=== PATIENT | male | born 1965 | race Caucasian/White ===

== ENCOUNTER 2018-05-10 08:11 | Outpatient (REF) | payer BC, SELFPAY ==
[2018-05-10 13:32] LABS: Anion Gap 7.8 mmol/L (3-11); BUN 23 mg/dL (7-18); CO2 26.2 mmol/L (21.0-32.0); CREATININE 1.14 mg/dL (0.70-1.30); Calcium 8.6 mg/dL (8.5-10.1); Chloride 107 mmol/L (98-107); Cholesterol 240 mg/dL (50-200); Glucose 97 mg/dL (70-100); HDL Cholesterol 41 mg/dL (40-60); LDL CHOLESTEROL 183 mg/dL (<100); Potassium 4.6 mmol/L (3.5-5.1); Sodium 141 mmol/L (136-145); Triglyceride 158 mg/dL (30-150)
== END 2018-05-10 08:31 ==
LOC: NCHCN 08:11
PROVIDERS: PCP Family Medicine; Visit Provider Nurse Practitioner Family
DX: Z00.00 Encounter for general adult medical examination without abnormal findings (principal); Z13.228 Encounter for screening for other metabolic disorders; Z13.220 Encounter for screening for lipoid disorders
CPT/HCPCS: 80048; 80061; 83721

== ENCOUNTER 2019-05-04 12:38 | Outpatient (REF) | payer BC, SELFPAY ==
[2019-05-04 13:10] LABS: HCT 39.4 % (40.0-50.0); HGB 13.4 g/dL (13.5-17.5); Mean Corpuscular Hemoglobin 29.3 pg (27.0-33.0); Mean Platelet Volume 10.5 fL (8.0-11.0); Platelet Count 252 x1000/uL (130-400); RBC 4.58 m/cumm (4.50-6.00); RBC Distribution Width 12.8 % (11.8-14.1); White Blood Cell Count 7.75 k/cumm (4.4-10.8)
[2019-05-04 13:36] LABS: Anion Gap 9.9 mmol/L (3-11); BUN 15 mg/dL (7-18); CO2 27.1 mmol/L (21.0-32.0); CREATININE 1.18 mg/dL (0.70-1.30); Calcium 8.9 mg/dL (8.5-10.1); Calculated LDL 152 mg/dL; Chloride 106 mmol/L (98-107); Cholesterol 213 mg/dL (50-200); Glucose 97 mg/dL (70-100); HDL Cholesterol 39 mg/dL (40-60); Potassium 4.3 mmol/L (3.5-5.1); Sodium 143 mmol/L (136-145); Triglyceride 114 mg/dL (30-150)
== END 2019-05-04 12:58 ==
LOC: NCHCN 12:38
PROVIDERS: PCP Family Medicine; Visit Provider Nurse Practitioner Family
DX: Z00.00 Encounter for general adult medical examination without abnormal findings (principal); Z13.228 Encounter for screening for other metabolic disorders; Z13.0 Encounter for screening for diseases of the blood and blood-forming organs and certain disorders involving the immune mechanism; Z13.220 Encounter for screening for lipoid disorders
CPT/HCPCS: 80048; 80061; 85027

== ENCOUNTER 2019-12-15 12:49 | Outpatient (CLI) | payer OTHER, SELFPAY ==
[2019-12-15 13:31] LABS: Abs Immature Grans 0.02 k/cumm (0.0-0.09); Absolute Basophil Count 0.02 k/cumm (0.0-0.2); Absolute Eosinophil Count 0.09 k/cumm (0.0-0.7); Absolute Lymphocyte Count 1.59 k/cumm (1.2-3.4); Absolute Monocyte Count 1.09 k/cumm (0.11-0.7); Absolute Neutrophil Count 6.67 k/cumm (1.2-6.7); Basophils % 0.2; Eosinophils % 0.9; HCT 39.4 % (40.0-50.0); HGB 13.4 g/dL (13.5-17.5); Immature Grans % 0.2 %; Lymphocytes % 16.8; Mean Corpuscular Hemoglobin 29.1 pg (27.0-33.0); Mean Corpuscular Volume 85.5 fL (80-95); Mean Platelet Volume 9.9 fL (8.0-11.0); Monocytes % 11.5; Neutrophils % 70.4; Platelet Count 276 x1000/uL (130-400); RBC 4.61 m/cumm (4.50-6.00); RBC Distribution Width 13.1 % (11.8-14.1); White Blood Cell Count 9.48 k/cumm (4.4-10.8)
[2019-12-15 13:57] LABS: ALT 33 U/L (16-63); AST 22 U/L (15-37); Albumin 4.1 g/dL (3.4-5.0); Alkaline Phosphatase 70 U/L (46-116); Anion Gap 7.2 mmol/L (3-11); BUN 13 mg/dL (7-18); Bilirubin, Total 0.8 mg/dL (0.2-1.0); CO2 27.8 mmol/L (21.0-32.0); CREATININE 1.21 mg/dL (0.70-1.30); Calcium 9.2 mg/dL (8.5-10.1); Chloride 104 mmol/L (98-107); Glucose 91 mg/dL (74-106); Sodium 139 mmol/L (136-145); Total Protein 7.8 g/dL (6.4-8.2)
[2019-12-15 14:15] LABS: ESR 24 mm/hr (1-20)
--- NOTE | 2019-12-15 15:21 | DI.CT_ITS ---
EXAM: CT ABDOMEN PELVIS W CLINICAL HISTORY: LOWER ABD PAIN,R10.30, DIVERTICULOSIS OF SIGMOID,K57.30, H/O DIVERTICULITIS. TECHNIQUE: Imaging Protocol: Axial computed tomography images with coronal and sagittal reformatted images were created and reviewed CONTRAST MATERIAL: Intravenous: Omnipaque 350 Contrast volume:100 ml Oral: yes COMPARISON: CT ABD PELVIS WITH CONTRAST from 03/18/2016 FINDINGS: ABDOMEN: Lung Bases: Normal where visualized. Liver: Normal density. No measurable mass. Gallbladder and biliary tract: No radiodense calculus or dilation. Pancreas: Normal density, no abnormal calcifications or inflammatory process. Spleen: Normal. Kidneys: There is stable mild right renal atrophy and dilatation of the right renal pelvis. There ar e few tiny nonobstructing stones. The nephrograms are symmetric. Adrenal glands: No masses seen. Abdominal Aorta: Abdominal portion non-dilated. PELVIS: Bladder: Symmetric distention, no gross wall thickening. Bowel: Numerous diverticula are seen, greatest in the sigmoid region. There is wall thickening and a djacent inflammation, consistent with diverticulitis. No abscess, free air or free fluid is seen. T here is no bowel dilatation. The appendix appears normal. Bones: Degenerative changes, greatest at L4-5. Reproductive organs: Within normal limits. Lymph nodes: Unremarkable. Impression: Findings consistent with acute sigmoid diverticulitis. No evidence abscess or perforation. Stable d ilatation of the right renal pelvis. RADIATION DOSE DELIVERED: 946.36mGy.cm Total DLP DATA REPOSITORY: All CT scans at this facility are submitted to the National Radiology Data Registry (NRDR) Dose Index Registry (DIR) with the [employer] (ACR). RADIATION OPTIMIZATION: All CT scans at this facility use at least one of these dose optimization te chniques: automated exposure control; mA and/or kV adjustment per patient size (includes targeted exa ms where dose is matched to clinical indication); or iterative reconstruction.
[2019-12-15] MEDS: Breeza Beverage 473 ML BTL PO ×2 (15:37→15:38)
[2019-12-15] MEDS: Omnipaque 350 MG/ML 50 ML BTL PO (15:38)
[2019-12-15] MEDS: Omnipaque 350 MG/ML 100 ML BTL IJ (16:57)
[2019-12-15] MEDS: Normal Saline - Diluent 50 ML VIAL IV (16:58)
--- NOTE | 2019-12-15 17:11 | DI.VRAD_ITS ---
PROCEDURE INFORMATION: Exam: CT Abdomen And Pelvis With Contrast Exam date and time: 12/15/2019 4:48 PM Age: 54 years old Clinical indication: Abdominal pain; Localized; Patient HX: Lower abd pain, diverticulosis of sigmoid; Additional info: H/o diverticulitis TECHNIQUE: Imaging protocol: Computed tomography of the abdomen and pelvis with intravenous contrast. COMPARISON: CT ABD PELVIS WITH CONTRAST 03/18/2016 4:50 PM FINDINGS: Liver: Normal. No mass. Gallbladder and bile ducts: Normal. No calcified stones. No ductal dilation. Pancreas: Normal. No ductal dilation. Spleen: Normal. No splenomegaly. Adrenals: Normal. No mass. Kidneys and ureters: Mild right hydroureteronephrosis without evidence of obstructive stone. Atrophy of the right kidney. Stomach and bowel: Acute diverticulitis in the sigmoid colon. Questionable pericolonic phlegmon measuring 2.3 x 4.2 cm. Appendix: Unable to identify the appendix. Intraperitoneal space: Unremarkable. No free air. No significant fluid collection. Vasculature: Unremarkable. No abdominal aortic aneurysm. Lymph nodes: Unremarkable. No enlarged lymph nodes. Bladder: Unremarkable as visualized. Reproductive: Vasectomy. Bones/joints: Degenerative disc disease at L4-L5. No acute fracture. Soft tissues: Small left inguinal hernia containing fat, uncomplicated. IMPRESSION: Acute diverticulitis in the sigmoid colon. Questionable pericolonic phlegmon measuring 2.3 x 4.2 cm. Mild right hydroureteronephrosis. No obstructive stone. Dictated and Authenticated by: Deep Velazquez MD. Ordering:RAMIRO Tavera MD
== END 2019-12-15 13:09 ==
PROVIDERS: PCP Nurse Practitioner Family; Visit Provider Nurse Practitioner Family
DX: R10.30 Lower abdominal pain, unspecified (principal); K57.32 Diverticulitis of large intestine without perforation or abscess without bleeding; N20.0 Calculus of kidney
CPT/HCPCS: 36415; 80053; 85652; 74177; 85025; J3490; Q9967

== ENCOUNTER 2019-12-15 17:57 | Emergency (ER) | payer OTHER, SELFPAY ==
[2019-12-15 18:09] VITALS: BP 145/90; PULSE 91; RESP 16; TEMP 36.6; O2SAT 98
--- NOTE | 2019-12-15 18:20 | ED.GENADUL_ITS ---
Discharge Plan Disposition Patient Disposition: HOME Condition: Stable Discharge Details Chief Complaint: Abd Prob Clinical Impression: Diverticulitis Primary Care Provider: Shey Perez ED Provider: Flower Kinsey Home Meds and New Rx's Prescriptions: New ciprofloxacin HCl 500 mg tablet 500 mg PO BID 10 Days Qty: 20 RF: 0 metronidazole 500 mg tablet 500 mg PO BID 10 Days Qty: 20 RF: 0 Discharge Instructions Instructions: Diverticulitis (ED), Diverticulitis Diet (ED) Additional Instructions: Follow up with primary care provider in 3-5 days. Return to ED sooner if any worsening or concerns. Increase oral fluids. Please take Tylenol or Ibuprofen with food every 4-6 hours as needed for pain and swelling. Take medications as directed. Return for any rectal bleeding, fever, vomiting or worsening pain. Referrals: Shey Perez MD [Primary Care Provider] - Discharge Data Discharge Date/Time-TO BE ENTERED AT DEPARTURE: 12/15/19 20:30 Medical Decision Making <Flower Kinsey - Last Filed: 12/15/19 22:27> 54-year-old male presents with a chief complaint of abdominal pain. Patient states that he was seen by his primary care provider Dr. Liang Portillo had lab work done and had a CT abdomen pelvis with IV contrast which shows acute diverticulitis with a pericolonic phlegmon measuring 2.3 x 4.2 cm which raises the concern for possible abscess. Patient states that his abdominal pain began 3 days ago and got worse today after walking. He states that his bowel movements have been decreased and watery. Denies vomiting, denies fever or chills, denies hematochezia. He does have a history of diverticulitis has had 1 episode in the past. He had a CBC and CMP done today, added on magnesium, lactate blood cultures x2 and a urinalysis. 183: Spoke with Dr. Galloway who is the surgeon biofuels operations manager regarding patient case in [facility], she is going to review his CT result and images and labs and call me back regarding possible admission for this patient. 1842: Spoke with Dr. Lamar of surgery who reports that if patient's pain is poorly controlled and/or has abnormal labs she does not mind admitting patient. Otherwise if patient would rather be discharged home she can follow-up with him in the clinic on and she is also biofuels operations manager this weekend if he gets any worse to return to the ED. I will wait for the rest of his labs to come back and see if his pain is controlled before making the final disposition decision. 1915: Patient refused morphine and Zofran at this time states pain is 3 or 4 out of 10 and is tolerable. Discussed inpatient admission versus outpatient treatment shared decision making performed with patient he states that he thinks that he would do well at home. At this time I agree given his labs are all within normal limits and his pain seems somewhat under control and tolerable. He is receiving IV ciprofloxacin 40 mg now IV piggyback. We will cancel the IV Flagyl and give him oral Flagyl. Discussed strict return instructions and red flags with patient, verbalized understanding. <Rodolfo López MD - Last Filed: 12/22/19 14:58> Patient seen, examined, and discussed with EVITA Kinsey. Abdominal exam: Patient does have some focal tenderness left lower quadrant, no rebound tenderness, abdomen is soft. I agree with treatment plan as discussed/documented. HPI <Flower Kinsey - Last Filed: 12/15/19 22:27> General Mode of arrival: ambulatory . Date/Time Provider Initiated Documentation: 12/15/19 17:59 . Limitations to Documentation: no limitations . Information obtained by: patient . HPI Narrative: 54-year-old male presents with a chief complaint of abdominal pain. Patient states that he was seen by his primary care provider Dr. Liang Portillo had lab work done and had a CT abdomen pelvis with IV contrast which shows acute diverticulitis with a pericolonic phlegmon measuring 2.3 x 4.2 cm which raises the concern for possible abscess. Patient states that his abdominal pain began 3 days ago and got worse today after walking. He states that his bowel movements have been decreased and watery. Denies vomiting, denies fever or chills, denies hematochezia. He does have a history of diverticulitis has had 1 episode in the past. Related Data Home Medications Medication Instructions Recorded Confirmed ciprofloxacin HCl 500 mg PO BID 10 Days #20 tab 12/15/19 metronidazole 500 mg PO BID 10 Days #20 tab 12/15/19 Previous Rx's Medication Instructions Recorded ciprofloxacin HCl 500 mg PO BID 10 Days #20 tab 12/15/19 metronidazole 500 mg PO BID 10 Days #20 tab 12/15/19 Allergies Allergy/AdvReac Type Severity Reaction Status Date / Time doxazosin mesylate AdvReac Unknown Unverified 12/15/19 19:06 [From Kevin] General Stated Complaint: Abd Prob ARTURO: 3 Review of Systems <Flower Kinsey - Last Filed: 12/15/19 22:27> Narrative: Constitutional: Negative for weight loss, alert and oriented, well groomed, normal body habitus, appears comfortable. HEENT: Denies trauma, headaches, blurry vision, nasal discharge, sore throat, trouble swallowing. Chest: Denies chest pain, palpitations, irregular rhythm, hypertension. Respiratory: Denies Shortness of breath, cough, hemoptysis. GI: Denies nausea, vomiting, constipation. Positive lower bilateral abdominal pain, positive diarrhea. : Denies dysuria, hematuria, flank pain, rectal bleeding. Neuro: Denies dizziness, blurry vision, weakness, syncope, headache or facial numbness. Hematologic: Denies easy bruising, intolerance to heat or cold, hair loss. All systems reviewed & are unremarkable except as noted in HPI and below PFSH <Flwoer Kinsey - Last Filed: 12/15/19 22:27> Medical History Diverticulitis Surgical History Vasectomy Social History Smoking/Tobacco Use Status: Never Alcohol Intake: current Alcohol Intake frequency: a few times a month Alcohol type: beer Drug use: Never Substance use type: does not use Do you feel safe at home: Yes Do you feel safe in your relationship?: Yes Exam <Flower Kinsey - Last Filed: 12/15/19 22:27> Narrative Exam Narrative: Constitutional: Alert and oriented x3. Appears stated age. Normal body habitus. Head: Normocephalic, no trauma. Eyes: Pupils PERRLA, Red reflex noted, EOM's intact. Eyelids symmetrical without lesions, discharge, or swelling. ENT: Bilateral TM's WNL, External ear normal to inspection, no mastoid TTP, swelling, or erythema, Nasal turbinates WNL, no nasal discharge. Normal dentition, Posterior pharynx WNL, no exudate. Chest: RRR, Normal S1, S2, distal pulses intact. Resp: Lungs clear to auscultation bilaterally, no wheezes, rales, or rhonchi. Musculoskeletal: Normal gait, 5/5 strength to all four extremities. Abdominal: Soft, nondistended, hyperactive bowel sounds noted. Tender to palpation left lower quadrant and right lower quadrant. Skin: No suspicious rashes or lesions. Capillary refill less than 2 sec. Neurologic: Cranial nerves II-XII intact. Alert and oriented x 3. DTR's intact. Hematologic/Lymphatic: No ecchymosis, no lymphadenopathy. Course <Flower Kinsey - Last Filed: 12/15/19 22:27> Vital Signs Vital signs: Vital Signs Temperature 36.6 C 12/15/19 18:09 Pulse 91 H 12/15/19 18:09 Respiratory Rate 16 12/15/19 18:09 Blood Pressure 145/90 H 12/15/19 18:09 Pulse Oximetry 98 12/15/19 18:09 Temperature 36.6 C 12/15/19 18:09 Temperature Source Temporal Artery Scan 12/15/19 18:09 Pulse 91 H 12/15/19 18:09 Respiratory Rate 16 12/15/19 18:09 Blood Pressure 145/90 H 12/15/19 18:09 Blood Pressure Position Sitting 12/15/19 18:09 Pulse Oximetry 98 12/15/19 18:09 Oxygen Delivery Method Room Air 12/15/19 18:09 Oxygen Flow Rate 0 12/15/19 18:09 Pain Level 3 12/15/19 18:09 Comment 12/15/19 18:09 Lab/Test Results Lab/Test Results: 12/15/19 18:19 Blood Blood Culture - Pending 12/15/19 18:19 Blood Blood Culture - Pending
[2019-12-15] MEDS: Normal Saline Flush 10 ML SYR IVP (18:35)
[2019-12-15 18:41] LABS: Lactate 0.8 mmol/L (0.6-1.4)
[2019-12-15 18:50] LABS: Magnesium 1.8 mg/dL (1.8-2.4)
[2019-12-15 18:55] LABS: Bilirubin Negative (Negative); Blood Negative (Negative); Clarity Clear (Clear); Glucose Negative (Negative); Ketones Negative (Negative); Leukocyte Esterase Negative (Negative); Nitrite Negative (Negative); Specific Gravity <= 1.005 (1.005-1.025); Urobilinogen 0.2 EU/dL (Up TO 0.2); pH 5.5 (5-8)
[2019-12-15] MEDS: Normal Saline 1,000 ML 1000 ML IV (18:55)
[2019-12-15] MEDS: CIPROFLOXACIN 400 MG/200 ML BAG 200 MG IVPB (18:57)
[2019-12-15] MEDS: metroNIDAZOLE 500 MG TAB PO ×2 (19:29→19:30)
[2019-12-15 20:33] VITALS: BP 126/82; PULSE 80; RESP 16; TEMP 37; O2SAT 98
== END 2019-12-15 20:30 | disposition home or self-care (01) ==
PROVIDERS: Emergency Provider Registered Nurse Emergency; PCP Family Medicine
DX: K57.32 Diverticulitis of large intestine without perforation or abscess without bleeding (principal)
CPT/HCPCS: 36415; 87040; 96361; 96365; 99284; 81003; 83605; 83735; J0744; J2270

== ENCOUNTER 2020-02-23 09:43 | Emergency (ER) | payer OTHER, SELFPAY ==
[2020-02-23 09:48] VITALS: BP 136/105; PULSE 97; RESP 18; TEMP 36.6; O2SAT 96
--- NOTE | 2020-02-23 09:54 | ED.GENADUL_ITS ---
Discharge Plan Disposition Patient Disposition: HOME Condition: Stable Discharge Details Chief Complaint: Abd Prob Clinical Impression: Acute diverticulitis Primary Care Provider: Liang Portillo ED Provider: Marjorie Paulino Home Meds and New Rx's Prescriptions: New amoxicillin-pot clavulanate [Augmentin] 875-125 mg tablet 1 tab PO BID 10 Days Qty: 20 RF: 0 Continued pantoprazole 20 mg tablet,delayed release (DR/EC) 20 mg PO DAILY PRNRF: 0 Discharge Instructions Instructions: Diverticulitis (ED), Diverticulitis Diet (ED) Additional Instructions: Drink plenty of fluids and get plenty of rest. Take antibiotics until finished. Follow-up with your primary care doctor in 1 week. Return to the emergency department with any worsening or new concerning symptoms. Referrals: Cherise Galloway MD [ [facility] STAFF PHYSICIAN] - Discharge Data Discharge Physician: Marjorie Paulino Medical Decision Making 54-year-old male with lower abdominal pain worse in left lower quadrant similar to previous episodes of diverticulitis. He appears nontoxic. He has tenderness across lower abdomen, worse in left lower quadrant. Will refer for labs and CT imaging. Declines any medication for pain. 1125 --labs and imaging reviewed. White blood cell count 12. Urinalysis negative. CT notes acute diverticulitis at descending and sigmoid colon. Case discussed with surgery Dr. Galloway and she agrees that patient can be treated as outpatient and recommends follow-up with her for reevaluation and to discuss colonoscopy which patient is due for soon. Patient reassessed -denies any significant pain and feels good to go home. 1 dose of Augmentin given here as well as prescription. Patient placed on surgery follow-up list. Usual and customary return precautions given prior to discharge. Medical Records Medical records reviewed: Yes I reviewed the patient's medical records. Imaging Data Radiologic Study: Radiologist's impression: CT ABDOMEN PELVIS W CLINICAL HISTORY: lower abd pain, h/o diverticulitis. TECHNIQUE: Imaging Protocol: Axial computed tomography images with coronal and sagittal reformatted images were created and reviewed CONTRAST MATERIAL: Intravenous: Omnipaque 350 Contrast volume:100 ml Oral: no COMPARISON: CT CT ABDOMEN PELVIS W from 12/15/2019 FINDINGS: ABDOMEN: Lung Bases: Normal where visualized. Liver: Normal density. No measurable mass. Gallbladder and biliary tract: No radiodense calculus or dilation. Pancreas: Normal density, no abnormal calcifications or inflammatory process. Spleen: Normal. Kidneys: There is stable mild right renal atrophy and dilatation of the right renal pelvis.. No obstructive uropathy. Few tiny nonobstructing stones are again noted. No masses seen. Adrenal glands: No masses seen. Abdominal Aorta: Abdominal portion non-dilated. PELVIS: Bladder: Symmetric distention, no gross wall thickening. Bowel: Diverticulosis is again noted of the lower descending and sigmoid colon. There is inflammation and wall thickening at the junction of the descending and sigmoid, consistent with diverticulitis. There is no evidence of abscess or perforation. The there is no free fluid. Peritoneal cavity: No ascites, collection or mesenteric inflammatory response. Bones: Within normal limits. Reproductive organs: Within normal limits. Lymph nodes: Unremarkable. Impression: Acute diverticulitis at the junction of the descending and sigmoid colon. No abscess or perforation. Lab Data Lab results reviewed: Yes I reviewed the patient's lab results. Labs: Laboratory Tests Range/Units 02/23/20 02/23/20 02/23/20 10:00 10:15 10:15 WBC (4.4-10.8) 10^3/uL 12.85 H RBC (4.36-5.78) 10^6/uL 4.75 Hgb (13.5-17.5) g/dL 13.6 Hct (40.0-50.0) % 40.7 MCV (80-95) fL 85.7 MCH (27.0-33.0) pg 28.6 MCHC (32.0-36.0) % 33.4 RDW (11.8-14.1) % 12.6 Plt Count (130-400) 10^3/uL 242 MPV (8.0-11.0) fL 10.0 Immature Gran % 0.3 Neutrophils % 75.7 Lymphocytes % 15.1 Monocytes % 8.3 Eosinophils % 0.3 Basophils % 0.3 Absolute Neutrophils (1.2-6.7) 10^3/uL 9.73 H Absolute Lymphocytes (1.2-3.4) 10^3/uL 1.94 Absolute Monocytes (0.1-0.8) 10^3/uL 1.07 H Absolute Eosinophils (0.0-0.7) 10^3/uL 0.04 Absolute Basophils (0.0-0.2) 10^3/uL 0.04 Sodium (136-145) mmol/L 139 Potassium (3.5-5.1) mmol/L 4.1 Chloride (98-107) mmol/L 104 Carbon Dioxide (21.0-32.0) mmol/L 22.9 Anion Gap (3-11) mmol/L 12.1 H BUN (7-18) mg/dL 11 Creatinine (0.70-1.30) mg/dL 0.98 Estimated GFR/1.73 m2 (mL/min/1.73m2) >= 60.00 Glucose (74-106) mg/dL 105 Calcium (8.5-10.1) mg/dL 9.0 Total Bilirubin (0.2-1.0) mg/dL 1.1 H AST (15-37) U/L 24 ALT (16-63) U/L 29 Alkaline Phosphatase (46-116) U/L 72 Total Protein (6.4-8.2) g/dL 8.0 Albumin (3.4-5.0) g/dL 4.1 Lipase (73-393) U/L 79 Urine Color (Yellow) Yellow Urine Clarity (Clear) Clear Urine pH (5-8) 5.5 Ur Specific Cove (1.005-1.025) 1.010 Urine Protein (Negative) mg/dL Negative Urine Ketones (Negative) mg/dL Negative Urine Blood (Negative) Negative Urine Nitrite (Negative) Negative Urine Bilirubin (Negative) Negative Urine Urobilinogen (Up TO 0.2) EU/dL 0.2 Ur Leukocyte Esterase (Negative) Negative Urine Glucose (Negative) mg/dL Negative HPI General Mode of arrival: ambulatory . Date/Time Provider Initiated Documentation: 02/23/20 09:48 . Limitations to Documentation: no limitations . Information obtained by: patient . HPI Narrative: Pt is a 54yo M w/ a h/o diverticulitis who presents to the ED w/ a c/o LLQ abdominal pain for the past 2 days. Pt states the pain began as intermittent and is now more constant. He de scribes it at as crampy, across the lower abdomen and worse in the LLQ. He states the pain is now 2/10 but is worse with movement and walking. He denies fever, nausea, vomiting, diarrhea, or urinary symptoms. He took ibuprofen for pain yesterday but nothing today. He states the pain feels similar to his previous episodes of diverticulitis which he last was treated for 2 months ago. Related Data Home Medications Medication Instructions Recorded Confirmed amoxicillin-pot clavulanate 1 tab PO BID 10 Days #20 tab 02/23/20 [Augmentin] pantoprazole 20 mg PO DAILY PRN 02/23/20 02/23/20 Previous Rx's Medication Instructions Recorded amoxicillin-pot clavulanate 1 tab PO BID 10 Days #20 tab 02/23/20 [Augmentin] Allergies Allergy/AdvReac Type Severity Reaction Status Date / Time doxazosin mesylate AdvReac Unknown Unverified 02/23/20 10:19 [From Kevin] General Stated Complaint: Abd Prob ARTURO: 3 Review of Systems All systems reviewed & are unremarkable except as noted in HPI and below Constitutional Constitutional: Reports as per HPI, Denies chills and Denies fever(s) Eyes Eyes: Denies blurry vision ENT Ears, Nose, Mouth, and Throat: Denies dizziness, Denies sore throat and Denies throat swelling Cardiovascular Cardiovascular: Denies chest pain and Denies dyspnea Respiratory Respiratory: Denies cough and Denies dyspnea Gastrointestinal Gastrointestinal: Reports abdominal pain, Denies diarrhea and Denies vomiting Genitourinary Genitourinary: Denies hematuria and Denies dysuria Musculoskeletal Musculoskeletal: Denies back pain and Denies numbness Integumentary/Breasts Skin/Breast: Denies lesions and Denies rash Neurologic Neurologic: Denies dizziness, Denies localized weakness and Denies numbness Allergic/Immunologic Allergic/Immunologic: Denies throat swelling PENDING SALE TO [facility] Medical History (Updated 02/23/20 @ 11:35 by Marjorie Paulino DO) Diverticulitis Surgical History Vasectomy Social History Smoking/Tobacco Use Status: Never Alcohol Intake: current Alcohol Intake frequency: a few times a month Alcohol type: beer Drug use: Never Substance use type: does not use Do you feel safe at home: Yes Do you feel safe in your relationship?: Yes Exam Const General: cooperative, healthy appearing and no acute distress HENAZ Head: normal to inspection Face and sinus: normal facial exam Eyes General: appearance normal, both eyes and all related structures EOM: EOM intact bilaterally Neck Neck: normal visual inspection and No submandibular swelling Lymphatic: no lymphadenopathy noted Chest Chest: normal inspection of the chest and no tenderness Resp Effort & Inspection: normal respiratory effort and able to speak in complete sentences Auscultation: clear to auscultation bilaterally Cardio Rate: regular rate Rhythm: regular rhythm GI Inspection: normal to inspection Palpation: soft, not firm, not rigid and tender (across lower abdomen, worse in LLQ) Auscultation: hypoactive bowel sounds Skin General skin exam: no rashes or lesions noted Neuro General: patient alert, patient awake and patient oriented x3 Cognition: normal cognition Speech: speech normal Motor: muscle tone normal throughout Sensory Exam: no sensory deficits noted Extrem General: normal to inspection, full ROM, capillary refill normal, no calf tenderness bilaterally and no edema Psych Appearance: grossly normal Mental Status: mental status grossly normal Speech and Movement: speech and movement normal Affect: normal affect Course Vital Signs Vital signs: Vital Signs Temperature 97.9 F 02/23/20 09:48 Pulse 97 H 02/23/20 09:48 Respiratory Rate 18 02/23/20 09:48 Blood Pressure 136/105 H 02/23/20 09:48 Pulse Oximetry 96 02/23/20 09:48 Temperature 97.9 F 02/23/20 09:48 Temperature Source Skin 02/23/20 09:48 Pulse 97 H 02/23/20 09:48 Respiratory Rate 18 02/23/20 09:48 Blood Pressure 136/105 H 02/23/20 09:48 Blood Pressure Position Sitting 02/23/20 09:48 Pulse Oximetry 96 02/23/20 09:48 Oxygen Delivery Method Room Air 02/23/20 09:48 Oxygen Flow Rate 0 02/23/20 09:48 Pain Level 2 02/23/20 09:48
[2020-02-23 10:11] LABS: Bilirubin Negative (Negative); Blood Negative (Negative); Clarity Clear (Clear); Glucose Negative (Negative); Ketones Negative (Negative); Leukocyte Esterase Negative (Negative); Nitrite Negative (Negative); Urobilinogen 0.2 EU/dL (Up TO 0.2); pH 5.5 (5-8)
[2020-02-23] MEDS: Normal Saline Flush 10 ML SYR IVP ×2 (10:15→11:23)
[2020-02-23 10:29] LABS: Abs Immature Grans 0.04 10^3/uL (0.0-0.06); Absolute Basophil Count 0.04 10^3/uL (0.0-0.2); Absolute Eosinophil Count 0.04 10^3/uL (0.0-0.7); Absolute Lymphocyte Count 1.94 10^3/uL (1.2-3.4); Absolute Monocyte Count 1.07 10^3/uL (0.1-0.8); Basophils % 0.3; Eosinophils % 0.3; HCT 40.7 % (40.0-50.0); HGB 13.6 g/dL (13.5-17.5); Immature Grans % 0.3; Lymphocytes % 15.1; MCH 28.6 pg (27.0-33.0); MCHC 33.4 % (32.0-36.0); MCV 85.7 fL (80-95); Monocytes % 8.3; Neutrophils % 75.7; Platelet Count 242 10^3/uL (130-400); RBC 4.75 10^6/uL (4.36-5.78); RDW 12.6 % (11.8-14.1); RDW-SD 39.7 fL; WBC 12.85 10^3/uL (4.4-10.8)
[2020-02-23 10:31] LABS: Absolute Neutrophil Count 9.73 10^3/uL (1.2-6.7)
[2020-02-23] MEDS: Normal Saline 1,000 ML 1000 ML IV (10:31)
[2020-02-23 10:43] LABS: ALT 29 U/L (16-63); AST 24 U/L (15-37); Albumin 4.1 g/dL (3.4-5.0); Alkaline Phosphatase 72 U/L (46-116); Anion Gap 12.1 mmol/L (3-11); BUN 11 mg/dL (7-18); Bilirubin, Total 1.1 mg/dL (0.2-1.0); CO2 22.9 mmol/L (21.0-32.0); CREATININE 0.98 mg/dL (0.70-1.30); Chloride 104 mmol/L (98-107); Glucose 105 mg/dL (74-106); Lipase 79 U/L (73-393); Potassium 4.1 mmol/L (3.5-5.1); Sodium 139 mmol/L (136-145)
--- NOTE | 2020-02-23 11:15 | DI.CT_ITS ---
EXAM: CT ABDOMEN PELVIS W CLINICAL HISTORY: lower abd pain, h/o diverticulitis. TECHNIQUE: Imaging Protocol: Axial computed tomography images with coronal and sagittal reformatted images were created and reviewed CONTRAST MATERIAL: Intravenous: Omnipaque 350 Contrast volume:100 ml Oral: no COMPARISON: CT CT ABDOMEN PELVIS W from 12/15/2019 FINDINGS: ABDOMEN: Lung Bases: Normal where visualized. Liver: Normal density. No measurable mass. Gallbladder and biliary tract: No radiodense calculus or dilation. Pancreas: Normal density, no abnormal calcifications or inflammatory process. Spleen: Normal. Kidneys: There is stable mild right renal atrophy and dilatation of the right renal pelvis.. No obst ructive uropathy. Few tiny nonobstructing stones are again noted. No masses seen. Adrenal glands: No masses seen. Abdominal Aorta: Abdominal portion non-dilated. PELVIS: Bladder: Symmetric distention, no gross wall thickening. Bowel: Diverticulosis is again noted of the lower descending and sigmoid colon. There is inflammatio n and wall thickening at the junction of the descending and sigmoid, consistent with diverticulitis. There is no evidence of abscess or perforation. The there is no free fluid. Peritoneal cavity: No ascites, collection or mesenteric inflammatory response. Bones: Within normal limits. Reproductive organs: Within normal limits. Lymph nodes: Unremarkable. Impression: Acute diverticulitis at the junction of the descending and sigmoid colon. No abscess or perforation. RADIATION DOSE DELIVERED: 1,064.3mGy.cm Total DLP DATA REPOSITORY: All CT scans at this facility are submitted to the National Radiology Data Registry (NRDR) Dose Index Registry (DIR) with the [employer] (A[employer]). RADIATION OPTIMIZATION: All CT scans at this facility use at least one of these dose optimization te chniques: automated exposure control; mA and/or kV adjustment per patient size (includes targeted exa ms where dose is matched to clinical indication); or iterative reconstruction.
[2020-02-23] MEDS: Omnipaque 350 MG/ML 100 ML BTL IJ (11:22)
[2020-02-23] MEDS: Normal Saline - Diluent 50 ML VIAL IV (11:22)
[2020-02-23] MEDS: Amoxicillin 875/Clav. 125 TAB PO (11:48)
[2020-02-23 11:51] VITALS: BP 143/89; PULSE 85; RESP 18; O2SAT 96
== END 2020-02-23 11:59 | disposition home or self-care (01) ==
PROVIDERS: Emergency Provider Physician Assistant; PCP Nurse Practitioner Family
DX: K57.32 Diverticulitis of large intestine without perforation or abscess without bleeding (principal)
CPT/HCPCS: 36415; 80053; 83690; 96360; 99285; 74177; 81003; 85025; J3490

== ENCOUNTER 2020-05-03 06:07 | Day surgery (SDC) | payer OTHER, SELFPAY ==
[2020-05-03 06:18] VITALS: BP 131/89; PULSE 71; RESP 18; TEMP 36.3; O2SAT 99
[2020-05-03] MEDS: Lactated Ringers 1,000 ML 80 ML IV (06:40)
--- NOTE | 2020-05-03 07:59 | W.PM.DSUDISC ---
Discharge Plan Disposition Patient Disposition: HOME Condition: Good Discharge Details Reason For Visit: Colonoscopy Attending Provider: Cherise Galloway Primary Care Provider: Liang Portillo Home Meds and New Rx's Prescriptions: Continued pantoprazole 20 mg tablet,delayed release (DR/EC) 20 mg PO DAILY PRNRF: 0 Discontinued polyethylene glycol 3350 17 gram/dose powder 238 g PO ONCE Qty: 238 RF: 0 bisacodyl 5 mg tablet,delayed release (DR/EC) 5 mg PO ONCE Qty: 4 RF: 0 Discharge Instructions Additional Instructions: Findings: Your colonoscopy showed uncomplicated diverticulosis. No inflammation or narrowing was seen. Follow up: Due to history of polyps, plan for colonoscopy in 7 years. Please call if you develop: fevers >101.5 Nausea or Vomiting Abdominal pain that is not transient DAY SURGERY UNIT POST COLONOSCOPY INSTRUCTIONS 1. Because there will be medication in your system for the next 24 hours, you may feel a little sleepy. Your coordination will be affected. Therefore: a. Do not drive or operate dangerous equipment for 24 hours. b. Do not drink alcohol beverages for 24 hours (not even beer). c. Plan to go home and rest for the day. 2. Generally there are no restrictions on your activity after a day or so has gone by, but you may feel a bit fatigued for a few days. 3 After you arrive home you may have a light meal and return to a normal diet as you can tolerate it without feeling sick to your stomach. 4. After surgery, you may feel pain or discomfort. This should be only transient, but if it persists please contact your doctor. 5. If there are any questions regarding the findings of your procedure, please feel free to contact your doctor. 6. If you are unable to contact your doctor with a problem, contact the hospital at [phone]. 7. Continue all your regular medications unless directed otherwise. I understand the above instructions and have no questions. Signature of Patient or Responsible Adult Escort Date/Time Name of Responsible Adult Escort Signature of Nurse Date/Time Activity:: Activity as Tolerated Diet:: As Tolerated Discharge Orders Discharge Orders: Discharge Order (Routine); Ordered 05/03/20 Ordered By: Cherise Galloway DS: Diagnosis Discharge Diagnosis (1) Diverticulosis: Status: Acute
--- NOTE | 2020-05-03 08:02 | W.COLOREPORT ---
Date of service: 05/03/20 Time of Service: 08:02 Colonoscopy Report Date of procedure: 05/03/20 Pre-op diagnosis general: History of tubular adenoma, diverticulitis Post-op diagnosis procedure note: other (Diverticulosis) Procedure: Colonoscopy Surgeon: Cherise Galloway Anesthesia proc note operative: MAC Indications: This 55 year old man has been treated for diverticulitis twice this year. He is due for a colonoscopy after having a tubular adenoma removed in 2013. Procedure Description: The patient was placed in the left Godwin position. Propofol was titrated to sedation. Digital rectal examination revealed no abnormalities. The scope was advanced to the cecum without difficulty. The ileocecal valve and appendiceal orifice were clearly identified. The prep was good. The scope was slowly withdrawn over the course of greater than 6 minutes with no abnormalities seen in the ascending, transverse, descending colon. He had a moderate amount of diverticulosis in the sigmoid colon but no acute inflammation, obvious muscular hypertrophy or stricture. The scope could be passed easily through this area. The rectum was normal including on retroflexed view. The patient tolerated the procedure well and was stable to recovery. Plan for routine screening colonoscopy in 7 years due to history of polyps or sooner if symptoms indicate.
[2020-05-03 08:24] VITALS: BP 110/84; PULSE 72; RESP 17; TEMP 36.1; O2SAT 97
== END 2020-05-03 09:00 | disposition home or self-care (01) ==
PROVIDERS: PCP Nurse Practitioner Family; Visit Provider Surgery
PROC: 0DJD8ZZ Inspection of Lower Intestinal Tract, Via Natural or Artificial Opening Endoscopic (ICD-10-PCS; CPT 45378; principal; 2020-05-03 07:30)
DX: Z12.11 Encounter for screening for malignant neoplasm of colon (principal); Z86.010 Personal history of colon polyps; K57.30 Diverticulosis of large intestine without perforation or abscess without bleeding
CPT/HCPCS: 45378

== ENCOUNTER 2020-05-23 09:22 | Outpatient (REF) | payer OTHER, SELFPAY ==
[2020-05-23 19:10] LABS: Calculated LDL 156 mg/dL (<100); Cholesterol 228 mg/dL (<200); HDL Cholesterol 40 mg/dL (40-60); Triglyceride 160 mg/dL (<150)
[2020-05-29 09:47] LABS: HIV-1/2 Ag & Ab Screen Negative (Negative); Hepatitis C Ab w Rflx HCV PCR Negative (Negative)
== END 2020-05-23 09:42 ==
LOC: NCHCN 09:22
PROVIDERS: PCP Nurse Practitioner Family; Visit Provider Nurse Practitioner Family
DX: Z00.00 Encounter for general adult medical examination without abnormal findings (principal); E78.5 Hyperlipidemia, unspecified
CPT/HCPCS: 80061; 86803; 87389

== ENCOUNTER 2021-07-09 14:55 | Outpatient (REF) | payer OTHER, SELFPAY ==
[2021-07-09 15:32] LABS: Calculated LDL 155 mg/dL (<100); Cholesterol 223 mg/dL (<200); HDL Cholesterol 44 mg/dL (40-60); Triglyceride 122 mg/dL (<150)
[2021-07-09 22:55] LABS: PSA, Screening 0.5 ng/mL (0.0-3.5)
== END 2021-07-09 14:56 | disposition home or self-care (01) ==
LOC: NCHCN 14:55
PROVIDERS: PCP Nurse Practitioner Family; Visit Provider Physician Assistant
DX: Z12.5 Encounter for screening for malignant neoplasm of prostate (principal); E78.5 Hyperlipidemia, unspecified; Z00.00 Encounter for general adult medical examination without abnormal findings
CPT/HCPCS: 80061; 84153

== ENCOUNTER 2022-10-19 15:12 | Outpatient (REF) | payer OTHER, SELFPAY ==
[2022-10-19 16:25] LABS: Abs Immature Grans 0.01 10^3/uL (0.0-0.06); Absolute Basophil Count 0.05 10^3/uL (0.0-0.2); Absolute Lymphocyte Count 1.76 10^3/uL (1.2-3.4); Absolute Monocyte Count 0.56 10^3/uL (0.1-0.8); Absolute Neutrophil Count 3.91 10^3/uL (1.2-6.7); Basophils % 0.8; Eosinophils % 1.6; HCT 44.6 % (40.0-50.0); Immature Grans % 0.2; Lymphocytes % 27.5; MCH 28.6 pg (27.0-33.0); MCHC 33.6 % (32.0-36.0); MCV 85 fL (80-95); MPV 11.1 fL (8.0-11.0); Monocytes % 8.8; Neutrophils % 61.1; Platelet Count 226 10^3/uL (130-400); RBC 5.24 10^6/uL (4.36-5.78); RDW 12.8 % (11.8-14.1); RDW-SD 39.2 fL; WBC 6.39 10^3/uL (4.4-10.8)
[2022-10-19 16:34] LABS: ESR 7 mm/hr (0-20)
[2022-10-19 16:46] LABS: Calculated LDL 195 mg/dL (<100); Cholesterol 263 mg/dL (<200); HDL Cholesterol 48 mg/dL (40-60); Triglyceride 103 mg/dL (<150)
[2022-10-19 16:50] LABS: Hemoglobin A1C 5.9 % (<5.7)
[2022-10-19 16:59] LABS: C-Reactive Protein 0.35 mg/dL (0.0-0.3)
== END 2022-10-19 15:13 | disposition home or self-care (01) ==
LOC: NCHCN 15:12
PROVIDERS: PCP Physician Assistant; Visit Provider Physician Assistant
DX: Z00.00 Encounter for general adult medical examination without abnormal findings (principal); E78.5 Hyperlipidemia, unspecified; Z13.1 Encounter for screening for diabetes mellitus
CPT/HCPCS: 80061; 85652; 83036; 85025; 86140

== ENCOUNTER 2024-06-26 15:19 | Outpatient (REF) | payer OTHER, SELFPAY ==
[2024-06-26 15:28] LABS: HCT 40.3 % (40.0-50.0); HGB 13.6 g/dL (13.5-17.5); MCH 28.9 pg (27.0-33.0); MCHC 33.7 % (32.0-36.0); MCV 86 fL (80-95); Platelet Count 196 10^3/uL (130-400); RDW 12.7 % (11.8-14.1); RDW-SD 39.8 fL; WBC 5.47 10^3/uL (4.4-10.8)
[2024-06-26 16:50] LABS: ALT 31 U/L (16-63); AST 27 U/L (15-37); Albumin 4.3 g/dL (3.4-5.0); Alkaline Phosphatase 69 U/L (46-116); Anion Gap 10.2 mmol/L (3-11); BUN 18 mg/dL (7-18); CO2 24.8 mmol/L (21.0-32.0); CREATININE 1.3 mg/dL (0.70-1.30); Calcium 9.2 mg/dL (8.5-10.1); Calculated LDL 170 mg/dL (<100); Chloride 108 mmol/L (98-107); Cholesterol 241 mg/dL (<200); Glucose 94 mg/dL (74-106); HDL Cholesterol 54 mg/dL (40-60); Potassium 4.3 mmol/L (3.5-5.1); Sodium 143 mmol/L (136-145); Total Protein 7.7 g/dL (6.4-8.2); Triglyceride 89 mg/dL (<150)
[2024-06-26 22:37] LABS: PSA, Screening 0.5 ng/mL (<=4.5)
== END 2024-06-26 15:20 | disposition home or self-care (01) ==
LOC: NCHCN 15:19
PROVIDERS: PCP Physician Assistant; Visit Provider Physician Assistant
DX: Z12.5 Encounter for screening for malignant neoplasm of prostate (principal); E78.5 Hyperlipidemia, unspecified; K21.9 Gastro-esophageal reflux disease without esophagitis
CPT/HCPCS: 80053; 80061; 84153; 85027